=== PATIENT | male | born 1970 | race African-American/Black ===

== ENCOUNTER → 2017-02-01 | Outpatient (CLI) | payer OTHER ==
[2016-03-25 12:55] VITALS: BP 164/98
[~2017-02-01] MED LIST: BUPIVACAINE MPF 0.25% 10 ML VIAL. ONE; DEXAMETHASONE SOD PHOS 4 MG/ML VIAL ONE; HYDR-971 PO; IOHEXOL 300 MG/ML 50 ML VIAL. ONE; LIDOCAINE 1% PF 30 ML VIAL. ONE; METH4TAB PO; PRED20TA PO
== END | disposition home or self-care (01) ==
LOC: SURG 10:58
PROVIDERS: ATTEND Anesthesiology Pain Medicine
DX: I10 Essential (primary) hypertension (principal); M54.16 Radiculopathy, lumbar region; Z72.89 Other problems related to lifestyle
CPT/HCPCS: 64483; 64484; J1100; J2001; J3490; Q9967

== ENCOUNTER → 2017-03-09 | Day surgery (SDC) | payer OTHER ==
[2016-03-25 12:55] VITALS: BP 164/98
[~2017-03-09] MED LIST changes: -BUPIVACAINE MPF 0.25% 10 ML VIAL. ONE; -DEXAMETHASONE SOD PHOS 4 MG/ML VIAL ONE; -IOHEXOL 300 MG/ML 50 ML VIAL. ONE; +IV RINGERS SOLUTION,LACTATED 1,000 ML IV ONE; -LIDOCAINE 1% PF 30 ML VIAL. ONE; +LIDOCAINE 2% PF Vial for OR 5 ML VIAL. ONE; +PROPOFOL 60 ML IV ONE
--- NOTE | 2017-03-12 16:56 | PATHOLOGY ---
PATHOLOGY REPORT * * * * * * * * FINAL DIAGNOSIS: A. Colon biopsy, inflammation at 85 cm: - Active chronic colitis with focal ulceration and without granulomas or specific features. B. Colon biopsy, inflammation at 15 cm: - Focal active colitis without granulomas or specific features. COMMENT: Sections of the colon biopsy at 85 cm reveal segments of colonic mucosa showing moderate active chronic inflammation with focal acute cryptitis and crypt architectural distortion and with focal ulceration. There are no granulomas or specific features. Sections of the colon biopsy at 15 cm reveal a segment of colonic mucosa showing focal active chronic inflammation with acute cryptitis. There are no granulomas or specific features. The differential diagnosis includes idiopathic chronic inflammatory bowel disease, although prolonged bacterial or other infections could produce similar histologic changes. Correlate clinically. (JPM:mgr; 03/12/2017) REPORT ELECTRONICALLY SIGNED BY: Elijah Falk M.D. DATE/TIME: 03/12/2017 16:55 * * * * * * * * GROSS PATHOLOGY: A. Received in formalin labeled "Christos Calle inflammation at 85 cm," are 3 segments of dey soft tissue measuring 1.8 x 1.0 x 0.4 cm in aggregate dimensions and ranging from 0.6 to 0.8 cm in maximum dimension. The specimen is submitted entirely in cassette A1. B. Received in formalin labeled "Christos Calle, inflammation at 15 cm," is a segment of dey soft tissue measuring 0.6 cm in maximum dimension. The specimen is submitted entirely in cassette B1. (TSD; 03/09/2017) INITIAL CPT CODE(S): A; 71913 B; 86715 Professional services performed by [facility] at [address] [address] Technical services performed by [facility] at [address] [place] [address], [facility] [address] [address]. MAIK Gay; Rene fax: SPECIMEN(S) RECEIVED: A.Inflammation @ 85cm B.Inflammation @ 15cm CLINICAL HISTORY: Melena PATIENT: CHRISTOS CALLE /AGE: 810/20/1970 (Age: 46) PATIENT #: [id number] ALT CASE #: SPECIMEN COLLECTION DATE: 03/09/2017 SPECIMEN RECEIVED DATE: 03/09/2017 [facility] - [address] [place] [address] - PHONE: [phone] * * * END OF REPORT * * *
== END | disposition home or self-care (01) ==
LOC: SURG 08:29
PROVIDERS: ATTEND Surgery
DX: K62.89 Other specified diseases of anus and rectum (principal); Z80.0 Family history of malignant neoplasm of digestive organs; I10 Essential (primary) hypertension
CPT/HCPCS: 45380; 88305; J2704; J7120; 45378; J2001

== ENCOUNTER → 2017-04-06 | Outpatient (CLI) | payer OTHER ==
[2016-03-25 12:55] VITALS: BP 164/98
[~2017-04-06] MED LIST changes: +BUPIVACAINE MPF 0.25% 10 ML VIAL. ONE; +BUPIVACAINE MPF 0.5% 30 ML VIAL. ONE; -IV RINGERS SOLUTION,LACTATED 1,000 ML IV ONE; +LIDOCAINE 1% PF 30 ML VIAL. ONE; -LIDOCAINE 2% PF Vial for OR 5 ML VIAL. ONE; -PROPOFOL 60 ML IV ONE
== END | disposition home or self-care (01) ==
LOC: SURG 10:24
PROVIDERS: ATTEND Anesthesiology Pain Medicine
DX: M47.816 Spondylosis without myelopathy or radiculopathy, lumbar region (principal); M54.5 Low back pain; I10 Essential (primary) hypertension; Z80.0 Family history of malignant neoplasm of digestive organs
CPT/HCPCS: 64493; 64494; J2001; J3490

== ENCOUNTER → 2017-04-27 | Outpatient (CLI) | payer OTHER ==
[2016-03-25 12:55] VITALS: BP 164/98
[~2017-04-27] MED LIST changes: -BUPIVACAINE MPF 0.25% 10 ML VIAL. ONE
== END | disposition home or self-care (01) ==
LOC: SURG 08:41
PROVIDERS: ATTEND Anesthesiology Pain Medicine
DX: M47.816 Spondylosis without myelopathy or radiculopathy, lumbar region (principal); M12.88 Other specific arthropathies, not elsewhere classified, other specified site; I10 Essential (primary) hypertension; M54.89 Other dorsalgia; G89.29 Other chronic pain
CPT/HCPCS: 64493; 64494; J2001; J3490

== ENCOUNTER → 2017-07-06 | Outpatient (CLI) | payer OTHER ==
[2016-03-25 12:55] VITALS: BP 164/98
[~2017-07-06] MED LIST changes: +BUPIVACAINE MPF 0.25% 10 ML VIAL. ONE; -BUPIVACAINE MPF 0.5% 30 ML VIAL. ONE; +DEXAMETHASONE SOD PHOS 4 MG/ML VIAL ONE; +IOHEXOL 300 MG/ML 50 ML VIAL. ONE
== END ==
LOC: SURG 10:04
PROVIDERS: ATTEND Anesthesiology Pain Medicine
DX: M54.16 Radiculopathy, lumbar region (principal)
CPT/HCPCS: 64483; 64484; J1100; J2001; J3490; Q9967